=== PATIENT | male | born 1960 | race Caucasian/White ===

== ENCOUNTER 2016-02-29 18:41 | Emergency (ER) | payer OTHER ==
[2016-02-29 19:15] VITALS: PULSE 85; RESP 16; TEMP 98.6; O2SAT 95
[2016-02-29 19:20] LABS: COLOR YELLOW; LEUKOCYTE ESTERASE,URINE NEGATIVE (NEGATIVE); NITRITE,URINE NEGATIVE (NEGATIVE)
--- NOTE | 2016-02-29 19:20 | UCPHY ---
H & P Time Seen by Provider: 02/29/16 18:47 Patient Type: New HPI/ROS: This patient reports hypertension. He has no somatic symptoms but he checked his blood pressure at home today and noticed that he had a diastolic pressure of 112 and systolic in the 180s. He then went to grocery store and checked it there again with a diastolic of I 12 and a higher systolic pressure. He came in for evaluation due to the ongoing hypertension despite his compliance with lisinopril 20 mg daily in the morning. He has been on the same dose for years now. He does report increase social stressors at work but no other lifestyle changes that might contribute to hypertension. ROS: Constitutional: No fatigue or fevers. HEENT: No headache or confusion, neuro: No focal numbness tingling weakness. No bowel or bladder incontinence Musculoskeletal he complains of intermittent right lumbar discomfort and sciatica. He currently has 5/10 right low back pain. Pulmonary: No shortness of breath cardiovascular: No chest pain heart palpitations dyspnea. GI: No nausea vomiting : No flank pain or hematuria. Complete ROS is otherwise negative Past Medical/Surgical History: Hypertension He once had proteinuria but that resolved after he started using his breather mask for sleep apnea at night. Sleep apnea Hypothyroid Family history: Negative for premature coronary artery disease Social History: Rare alcohol No drug use No coffee use Physical Exam: General Appearance: Alert, no distress. Eyes: Pupils equal and round no pallor or injection. ENT, Mouth: Mucous membranes moist. Respiratory: There are no retractions, lungs are clear to auscultation. Cardiovascular: Regular rate and rhythm. No murmur gallop or rub. No JVD. No peripheral edema Gastrointestinal: Soft, nontender Back: Mild right lumbar tenderness Neurological: Alert with no focal deficits. He maintains 5/5 strength in great toe dorsiflexion and plantar flexion bilaterally. No light touch sensory deficits. 2+ symmetric patellar DTRs bilaterally Skin: Warm and dry, no rashes. Extremities are symmetrical, full range of motion. Psychiatric: Mood and affect are normal DIFFERENTIAL DIAGNOSIS: After history and physical exam differential diagnosis was considered for hypertensive urgency with no overt evidence of end-organ injury. Nephritis functional hyper thyroidism Constitutional: Initial Vital Signs Temperature (C) 37.0 C 02/29/16 18:55 Heart Rate 85 02/29/16 18:55 Respiratory Rate 16 02/29/16 18:55 Blood Pressure 170/108 H 02/29/16 18:55 O2 Sat (%) 95 02/29/16 18:55 O2 Delivery Mode Room Air Allergies/Adverse Reactions: No Known Allergies Allergy (Verified 02/29/16 19:04) Home Medications: Medication Instructions Recorded LISINOPRIL 08/05/09 SYNTHROID 08/05/09 Axirone 02/29/16 Lisinopril 40 mg PO DAILY #30 tablet 02/29/16 Simvastatin 02/29/16 MDM/Departure - MDM Medications Given: Discontinued Medications Clonidine (Catapres) 0.2 mg PO EDNOW ONE Stop: 02/29/16 19:12 Last Admin: 02/29/16 19:21 Dose: 0.2 mg ED Course/Re-evaluation: Clonidine 0.2 p.o. - Depart Disposition: Home, Routine, Self-Care Clinical Impression: Hypertensive urgency, Sciatica of right side Condition: Good Instructions: Hypertension (ED), Sciatica (ED) Additional Instructions: Diagnosis: Hypertensive Urgency 2. Sciatica Plan: increase your Lisinopril dose to 40 mg per day & call your primary doctor to arrange a f/u appt. for a re-check in 3-7 days Return here or to the Emergency Department for any significant worsening despite the treatment plan. With the back pain, treat out Tylenol instead of ibuprofen on some days. Starts daily stretches 3-5 minutes each of: "Butterfly stretch," "Sphinx stretch", "pigeon stretch", and hamstring stretch. Avoid lifting more than 5-10 pounds until symptoms improve. Call your primary care physician for a followup appointment in 3-7 days. Go to the emergency department for worsening of your symptoms despite the treatment plan. Prescriptions: Lisinopril 40 mg PO DAILY #30 tablet Referrals: Jose Black DO [Primary Care Provider] - As per Instructions - PQRS PQRS Measurement: NA
[2016-02-29 19:27] LABS: RBC,URINE OCCASIONAL /hpf (0-3); WBC,URINE NONE SEEN /hpf (0-3)
[2016-02-29 20:21] VITALS: BP 158/100
== END 2016-02-29 20:22 | disposition home or self-care (01) ==
LOC: CED 18:41
DX: I10 Essential (primary) hypertension (principal); M54.31 Sciatica, right side
CPT/HCPCS: 81003-PO; 81015-PO; G0463-PO

== ENCOUNTER 2017-06-14 09:15 | Inpatient (IN) | payer OTHER ==
--- NOTE | 2017-05-25 17:54 | GHP ---
[f rep st] PREOP HISTORY AND PHYSICAL DATE OF ADMISSION: 06/21/2017 He will be an a.m. admission for surgery on June 21, 2017. PROBLEM: Right hip arthritis. HISTORY OF PRESENT ILLNESS: The patient is a 56-year-old man admitted for a right hip [place] hip resurfacing arthroplasty. He has had progressive pain in his right hip for the past 18 months. He is having daily pain and night pain. The hip is painful with walking and standing. His activities a re very limited. He is using ibuprofen as needed, but it does not help much. He normally likes to r aleena a bike, play basketball and football with his children, and do some hiking. He has trouble putti ng on his shoes and socks on the right side. No hip surgery. No prior physical therapy. He has had 3 cortisone injections. He has gained 20 pounds recently because he has been unable to exercise. Anabel rosen has failed nonsurgical treatment and is admitted for a right hip [place] hip resurfacing arthrop lasty. PAST MEDICAL HISTORY: He is treated for hypothyroidism, hypertension, and elevated cholesterol. He also receives testosterone shots. No history of heart disease, stents, DVT, hepatitis. He has sleep apnea and uses a CPAP machine. CURRENT MEDICATIONS: Levothyroxine 50 mcg per day, lisinopril 20 mg per day, simvastatin 40 mg per d ay. DRUG ALLERGIES: None. Metal allergy: None. Latex allergy: None. SOCIAL HISTORY: The patient does not smoke cigarettes and occasionally drinks alcohol. He has a gen e-in female partner at home. FAMILY HISTORY: Positive for hypertension, arthritis, and cancer. PHYSICAL EXAMINATION: VITAL SIGNS: Height 5 feet 10 inches. Weight 260 pounds. BMI 37.3. EYES: Conjunctivae and sclerae are clear. Pupils are round and reactive. MOUTH: Good oral hygiene. CHES T: Clear. HEART: Regular rhythm. No murmurs. EXTREMITIES: Pertinent findings limited to his rig ht hip. He has full hip extension and 100 degrees of flexion. External rotation 20 degrees. Manufacturer al rotation 0 degrees. Abduction 30 degrees. Well-developed thigh musculature. ABDOMEN: He has qu ite a bit of abdominal and truncal obesity. IMAGING PROCEDURES: His films show advanced degenerative arthritis of the right hip. He is bone on bone. IMPRESSION: On admission, right hip advanced degenerative arthritis. He is prepared for a right hip [place] hip resurfacing arthroplasty. 1. Treatment for hypertension. 2. Treatment for elevated cholesterol. 3. Treatment for hypothyroidism. PLAN: He will undergo a right hip [place]elda hip resurfacing arthroplasty. The surgery has been ignacio cribed to him, including the risks, complications, expectations, and recovery time. I have discussed with him the risk of dislocation, femoral neck fracture, infection, and sciatic nerve injury. Alvaro rosen also discussed with him extensively the issue of elevated metal ions in the blood and in the soft t issues around the hip joint. He understands that he is quite young for any type of hip arthroplasty and will probably require revision surgery in the future. I have explained to him the options betjime n a conventional total hip replacement and hip resurfacing. All his questions have been answered. Anabel rosen has elected to proceed with a [place] hip resurfacing on the right hip. /[id number]/MODL
[2017-06-21] MEDS ORDERED: ONDANSETRON 4 MG/2 ML VIAL IVP ONE (05:53)
[2017-06-21] MEDS ORDERED: FAMOTIDINE 20 MG TAB PO ONE (05:53)
[2017-06-21] MEDS ORDERED: ceFAZolin 2 GM/SWFI 2 GM/20 ML SYR IVP ONE (05:53)
[2017-06-21] MEDS ORDERED: ACETAMINOPHEN 325 MG TAB PO ONE (05:53)
[2017-06-21] MEDS ORDERED: GABAPENTIN 300 MG CAP PO ONE (05:53)
[2017-06-21] MEDS ORDERED: DEXAMETHASONE 4 MG/ML VIAL IVP ONE (05:53)
[2017-06-21] MEDS ORDERED: LIDOCAINE 1% 2 ML INJ ID PRN (05:54)
[2017-06-21] MEDS ORDERED: LR 1,000 ML IV ONE (05:54)
[2017-06-21] MEDS ORDERED: NS IV ONE (06:00)
[2017-06-21] MEDS ORDERED: TRANEXAMIC ACID IV ONE (06:00)
[2017-06-21] MEDS ORDERED: POVIDONE-IODINE 20 ML in SODIUM CL IRRIG SOLUTION 500 ML IRR ONE (06:00)
[2017-06-21] MEDS ORDERED: ROPIVACAINE 0.2% 80 MG, EPINEPHrine 0.2 MG, KETOROLAC TROMETHAMINE 30 MG in SYRINGE 0 ML IU ONE (06:00)
[2017-06-21] MEDS ORDERED: ceFAZolin 1 GM/5 ML SYR ONE (06:44)
[2017-06-21] MEDS ORDERED: MIDAZOLAM 2 MG/2 ML VIAL IVP ONE (06:50)
--- NOTE | 2017-06-21 06:50 | PDANEPAE ---
ANE History of Present Illness osteoarthritis ANE Past Medical History - Cardiovascular History Hx Hypertension: Yes Hx Arrhythmias: No Hx Chest Pain: No Hx Coronary Artery / Peripheral Vascular Disease: No Hx CHF / Valvular Disease: No Hx Palpitations: No - Pulmonary History Hx COPD: No Hx Asthma/Reactive Airway Disease: No Hx Recent Upper Respiratory Infection: No Hx Oxygen in Use at Home: No Hx Sleep Apnea: Yes Sleep Apnea Screening Result - Last Documented: Positive Pulmonary History Comment: TIFFANY uses C-PAP - Neurologic History Hx Cerebrovascular Accident: No Hx Seizures: No Hx Dementia: No - Endocrine History Hx Diabetes: No Hypothyroid: Yes Hyperthyroid: No Obesity: yes, moderate - Renal History Hx Renal Disorders: No - Liver History Hx Hepatic Disorders: No - Neurological & Psychiatric Hx Hx Neurological and Psychiatric Disorders: Yes Neurological / Psychiatric History Comment: mild carpal tunnel to hands - Cancer History Hx Cancer: No - Congenital Disorder History Hx Congenital Disorders: Yes Congenital History Comment: DJD, HTN,Hyperlipidemia - GI History GERD: no Hx Gastrointestinal Disorders: No - Other Health History Other Health History: mouth breather when on back - Chronic Pain History Chronic Pain: No - Surgical History Prior Surgeries: meniscus repair,. hand sx ANE Review of Systems Review of Systems: - Exercise capacity METS (RN): 4 METS ANE Patient History - Allergies Allergies/Adverse Reactions: No Known Allergies Allergy (Verified 06/01/17 12:44) - Home Medications Home Medications: SYNTHROID 0.05 mg PO DAILY MDD One q day and 2 on Sundays08/05/09 [Last Taken 06/20/17 07:00] Simvastatin 40 mg PO DAILY AT 8PM 02/29/16 [Last Taken 06/20/17 19:00] Lisinopril/Hydrochlorothiazide 20 mg PO BID MDD Dose is 20/12.5 06/01/17 [Last Taken 06/20/17 19:00] - NPO status NPO Since - Liquids (Date): 06/20/17 NPO Since - Liquids (Time): 22:30 NPO Since - Solids (Date): 06/20/17 NPO Since - Solids (Time): 21:30 - Anes Hx Anes Hx: no prior problems - Smoking Hx Smoking Status: Never smoked Marijuana use: No - Alcohol Use Alcohol Use: Occasionally - Family Anes Hx Family Anes Hx: neg - N/A Family Hx Anesthesia Complications: none ANE Labs/Vital Signs - Vital Signs Blood Pressure: 119/85 Heart Rate: 79 Respiratory Rate: 16 O2 Sat (%): 95 Height: 177.8 cm Weight: 117.934 kg ANE Physical Exam - Airway Neck exam: FROM, increased neck circumference, short neck Mallampati Score: Class 3 Mouth exam: normal dental/mouth exam - Pulmonary Pulmonary: no respiratory distress, no rales or rhonchi, clear to auscultation - Cardiovascular Cardiovascular: regular rate and rhythym, no murmur, rub, or gallop - ASA Status ASA Status: III ANE Anesthesia Plan Anesthesia Plan: MAC, spinal Total IV Anesthesia: No
[2017-06-21] MEDS ORDERED: PROPOFOL/EMULSION 500 MG/50 ML BOTTLE IV ONE ×2 (07:06→08:25)
[2017-06-21] MEDS ORDERED: fentaNYL 100 MCG/2 ML INJ ONE (07:06)
[2017-06-21] MEDS ORDERED: LIDOCAINE 2% 5 ML SDV ONE ×2 (07:12)
--- NOTE | 2017-06-21 07:12 | PDHPUP ---
History & Physical Update H&P update statement: This history and physical update is based on an assessment of the patient which was completed after admission or registration (within 24 hours), but prior to the surgery/procedure. H&P update: H&P reviewed & patient examined
[2017-06-21] MEDS ORDERED: PHENYLEPHRINE HCL 100 MCG/ML SYR ONE ×2 (07:39→08:41)
[2017-06-21] MEDS ORDERED: PHENYLEPHRINE HCL 100 MCG/ML SYR IVP PRN (08:09)
[2017-06-21] MEDS ORDERED: epHEDrine SULFATE 10 MG/ML SYR IVP PRN (08:09)
[2017-06-21] MEDS ORDERED: NALOXONE HCL 0.4 MG/ML INJ IVP PRN (08:09)
[2017-06-21] MEDS ORDERED: ACETAMINOPHEN 500 MG TAB PO PRN (08:09)
[2017-06-21] MEDS ORDERED: HYDROCODONE/APAP 5/325 TAB PO PRN (08:09)
[2017-06-21] MEDS ORDERED: LR 500 ML IV PRN (08:09)
[2017-06-21] MEDS ORDERED: ONDANSETRON 4 MG/2 ML VIAL IVP PRN ×2 (08:09→09:30)
[2017-06-21] MEDS ORDERED: oxyCODONE IR 5 MG TAB PO PRN (08:09)
[2017-06-21] MEDS ORDERED: ESMOLOL HCL 100 MG/10 ML VIAL IV ONE (09:15)
--- NOTE | 2017-06-21 09:23 | POSTOPPROG ---
Post Op Note Date of Operation: 06/21/17 Surgeon: Austyn Romero Math Interventionist: Stephenie Anesthesiologist: Dr. Trey Layne Anesthesia: IV Sedation, Spinal Post-op Diagnosis: Right hip severe degenerative arthritis. Procedure: Right hip [place] hip resurfacing arthroplasty. Inf/Abcess present in the surg proc area at time of surgery?: No EBL: 100-500
[2017-06-21] MEDS ORDERED: DIPHENOXYLATE/ATROPINE LOMOTIL 1 TAB PO PRN (09:30)
[2017-06-21] MEDS ORDERED: ONDANSETRON DISINTEGRATING 4 MG TAB PO PRN (09:30)
[2017-06-21] MEDS ORDERED: TEMAZEPAM 15 MG CAP PO PRN (09:30)
[2017-06-21] MEDS ORDERED: BISACODYL 10 MG SUPP PR PRN (09:30)
[2017-06-21] MEDS ORDERED: traMADol 50 MG TAB PO PRN (09:30)
[2017-06-21] MEDS ORDERED: diphenhydrAMINE 25 MG CAP PO PRN (09:30)
[2017-06-21] MEDS ORDERED: METOCLOPRAMIDE 10 MG/2 ML VIAL IVP PRN (09:30)
[2017-06-21] MEDS ORDERED: CYCLOBENZAPRINE 10 MG TAB PO PRN (09:30)
[2017-06-21] MEDS ORDERED: PROMETHAZINE HCL 25 MG/ML INJ IVP PRN (09:30)
[2017-06-21] MEDS ORDERED: POLYETHYLENE GLYCOL 3350 17 GM PKT PO PRN (09:30)
[2017-06-21] MEDS ORDERED: NS 500 ML IV PRN (09:30)
[2017-06-21] MEDS ORDERED: MAGNESIUM HYDROXIDE 30 ML UDCUP PO PRN (09:30)
[2017-06-21] MEDS ORDERED: LR 1,000 ML IV SCH (09:30)
[2017-06-21] MEDS ORDERED: PROMETHAZINE HCL 25 MG SUPPR PR PRN (09:30)
[2017-06-21] MEDS ORDERED: LACTULOSE 20 GM/30 ML UDCUP PO PRN (09:30)
--- NOTE | 2017-06-21 10:11 | GOP ---
[f rep st] OPERATIVE REPORT DATE OF OPERATION: 06/21/2017 SURGEON: Austyn Romero MD SEISMIC PROSPECTING OBSERVER: Juan Jimenez, BUYER AGENT and Andrez Saenz, PAC. ANESTHESIA: A combination of Marcaine, spinal, and IV sedation. ANESTHESIOLOGIST: Anastasiya Layne DO. PREOPERATIVE DIAGNOSIS: Right hip severe degenerative arthritis. POSTOPERATIVE DIAGNOSIS: Right hip severe degenerative arthritis. PROCEDURE PERFORMED: Right hip [place] hip resurfacing arthroplasty. FINDINGS: ESTIMATED BLOOD LOSS: About 400 mL. DESCRIPTION OF PROCEDURE: The patient was given 2 g of IV Ancef within 60 minutes of surgery. He al so received IV tranexamic acid at a dose of 20 mg/kg. He was placed on the operating room table and given spinal anesthesia with Marcaine by Dr. Layne. He was then placed supine and given IV sed ation. A Bassett catheter was not used. He wore a compressive stocking and SCD on the nonoperative le g. He was rolled to the left lateral decubitus position. An axillary roll was used, and all pressur e points were carefully padded. He was a large muscular man which made positioning somewhat difficul t. His BMI is 37.3. The position was secured with the pegboard table attachment. I was careful to lock his pelvis in a vertical position. His perineum was isolated with plastic adhesive drapes. His right hip and right lower extremity were prepped with ChloraPrep. They were draped free using steri le sheets, stockinette, and Ioban plastic drape. The World [employer] Organization time-out was performed to verify the correct patient identity and the c orrect surgical side and site. The [place] time-out was also performed. I made a 7 inch straight oblique posterolateral hip skin incision. Subcutaneous tissues were sharply divided, and hemostasis was obtained using electrocautery. The fascia yash was identified and split along the axis of its fibers. I curved posteriorly and proximally, and split the fascia of gluteus barry and bluntly split the muscle fibers in line with their orientation. His sciatic nerve was id entified and protected throughout the procedure. The Charnley self-retaining retractor was inserted. His external rotators and posterior hip capsule were divided as separate layers at the base of the femoral neck, tagged, and reflected posteriorly. The gluteus barry tendon was divided and tagged i n order to improve exposure and release tension on the sciatic nerve. His hip was dislocated posteri ayad. I used a sizing gauge to check the diameter of the neck and concluded that 52 mm was the prope r head size. I performed a complete circumferential capsulotomy. I was able to retract the femoral head anteriorly and superiorly, and hold it out of place with appropriate retractors. The remnant of his damaged labrum was completely excised. His acetabulum was reamed sequentially up to 57 mm. I s elected the Imelda monoblock porous-coated acetabular component with an outside diameter of 58 mm . This was firmly impacted and was a tight fit. I was careful to determine proper inclination and a nteversion. I used the transverse acetabular ligament and other acetabular bony landmarks to help me determine proper cup orientation. I was careful to leave a good lip of bone and capsule extending b eyond the anterior-inferior lip of the metal cup. I then returned to preparation of the femoral head. Using appropriate jigs and guides, I inserted a guide pin into the femoral head and neck. I was careful to position in such a way that there would b e no notching of the neck. The large sterile metal goniometer was used to check the neck shaft angle . I reamed over the guide pin and inserted the reaming guide. I then used the cylindrical reamer do wn to the head and neck junction. This was followed by the flat reamer and the chamfer reamer. The head was sized for 52 mm. There was no impingement or damage to the neck. He had excellent quality bone in his femoral head. I drilled a small hole in the lesser trochanter and inserted a suction can nula to create negative pressure in the medullary canal. Small holes were drilled on the flattened c hamfer surfaces of the head for cement anchors. The head was thoroughly cleaned with the pulsating l avage and carefully dried. I used a CarboJet device to blow dry the cancellous surfaces. A single b atch of Simplex cement with tobramycin was mixed. At about 50 seconds, I poured the liquid cement in to the head component, inserted it on the femoral head and impacted it into place. Excess cement was removed before it hardened. The acetabulum was irrigated, cleaned and inspected, and the hip was reduced. Stability and range of motion were checked. I placed my finger along the anterior aspect of the acetabular component and f lexed the hip to 110 degrees. There was no anterior impingement. The suction cannula on the lesser trochanter was removed. The wound was thoroughly irrigated with a dilute Betadine solution. 40 mL o f the joint anesthetic cocktail were injected into the capsule, the deep musculature, and the subcuta neous tissues along the skin edges. The sciatic nerve was reinspected and looked unharmed. His external rotators and posterior capsule w ere repaired in separate layers with #2 FiberWire sutures through drill holes in the greater trochant er. The gluteus barry tendon was repaired with 2 [id number] #2 FiberWire sutures. The fascia yash was closed first with a couple of interrupted [id number]-axcap #2 FiberWire sutures followed by a running #2 barbed Ethicon StrataFix PDO suture. The subcutaneous tissues were closed with a runnin g 0 barbed Ethicon Stratafix Monoderm suture. The skin was closed with a running 3-0 barbed Ethicon Stratafix Monoderm subcuticular suture. The skin edges were reapproximated and sealed with Dermabond glue. The wound was covered with a large sterile Mepilex waterproof dressing. The Mepilex sacral dressing was also applied. IMPLANTS: I used the [place] hip resurfacing system. The acetabular component was [address] and press-fit. The femoral head was 52 mm and cemented. He was awakened from anesthesia and rolled to the supine position on his [facility]. A long-leg compressive stocking and SCD were applied to the operative leg. He was awakened from anesthesia, tr ansferred to his [facility] and taken to PACU in satisfactory condition. There were no recogniz ed intraoperative complications. The sponge and needle count were correct on 2 occasions. Juan Jimenez and Hao Saenz acted as surgical assistants. Their assistance was a medical necess ity for safe completion of the procedure. /[id number]/MODL
--- NOTE | 2017-06-21 11:00 | POSTANESTH ---
Post Anesthetic Evaluation Cardiovascular Status: Normal, Stable Respiratory Status: Normal, Stable Level of Consciousness/Mental Status: Can Participate in Eval Pain Control: Adequate, Prn Tx Ordered Nausea/Vomiting Control: Adequate, Prn Tx Ordered Complications Possibly Related to Anesthesia: None Noted
--- NOTE | 2017-06-21 11:41 | PDMN ---
Medical Necessity Medical necessity: [facility]: M560 hip arthroplasty A-2 MC INPT only R FARA
[2017-06-21] MEDS: ACETAMINOPHEN 325 MG TAB PO SCH ×2 (12:46→18:01)
[2017-06-21] MEDS: KETOROLAC 15 MG/1 ML SDV IVP SCH ×2 (12:47→17:58)
[2017-06-21] MEDS ORDERED: ceFAZolin 2 GM/DEXTROSE 100 ML IV SCH (14:00)
[2017-06-21] MEDS: ceFAZolin 2 GM/SWFI 2 GM/20 ML SYR IVP SCH ×2 (14:51→21:43)
[2017-06-21] MEDS: TRANEXAMIC ACID 650 MG TAB PO SCH (16:33)
[2017-06-21] MEDS: LISINOPRIL/HCTZ 20/12.5MG 1 EA TAB PO SCH (18:00)
[2017-06-21] MEDS ORDERED: ATORVASTATIN CALCIUM 20 MG TAB PO SCH (20:00)
[2017-06-21] MEDS ORDERED: SIMVASTATIN 40 MG PO SCH (20:00)
[2017-06-21] MEDS ORDERED: HYDROCHLOROTHIAZIDE PO SCH (21:00)
[2017-06-21] MEDS ORDERED: LISINOPRIL PO SCH (21:00)
[2017-06-21] MEDS: SENNOSIDES/DOCUSATE SODIUM TAB PO SCH (21:42)
[2017-06-21] MEDS: FAMOTIDINE 20 MG TAB PO SCH (21:42)
[2017-06-21] MEDS: ASPIRIN 325 MG TAB PO SCH (21:42)
[2017-06-21] MEDS: oxyCODONE IR 5 MG TAB PO PRN (21:43)
[2017-06-22] MEDS: ACETAMINOPHEN 325 MG TAB PO SCH ×2 (00:10→06:21)
[2017-06-22] MEDS: KETOROLAC 15 MG/1 ML SDV IVP SCH ×2 (00:11→06:20)
[2017-06-22] MEDS: TRANEXAMIC ACID 650 MG TAB PO SCH ×2 (00:11→08:27)
[2017-06-22] MEDS ORDERED: LEVOTHYROXINE 50 MCG TAB PO SCH (06:00)
--- NOTE | 2017-06-22 07:11 | SOAPPROG ---
SOAP Progress Note Assessment/Plan: Assessment: Afebrile. Mild pain. He has been walking in the rush. His dressing is dry. Sciatic nerve intact. Postop films look excellent. Postop H&H is good. Plan: Continue physical therapy today. Discharged later today. 06/22/17 07:10 Objective: Vital Signs Temp Pulse Resp BP Pulse Ox 36.6 C 64 16 101/63 97 06/22/17 04:00 06/22/17 04:00 06/22/17 04:00 06/22/17 04:00 06/22/17 04:00 Laboratory Results 06/22/17 05:04 06/21/17 06/22/17 06/23/17 05:59 05:59 05:59 Intake Total 3350 Output Total 1550 Balance 1800 ICD10 Worksheet Patient Problems: Problems Problem Status Onset Osteoarthritis of right hip Acute
--- NOTE | 2017-06-22 07:31 | GDS ---
[f rep st] DISCHARGE SUMMARY ADMISSION DIAGNOSIS: Right hip severe degenerative arthritis. DISCHARGE DIAGNOSIS: Right hip severe degenerative arthritis. OPERATION PERFORMED: 07/10/2017, right hip [place] hip resurfacing arthroplasty. POSTOPERATIVE COMPLICATIONS: None. CONDITION ON DISCHARGE: Improved. DESCRIPTION OF HOSPITAL COURSE: The patient was admitted to the hospital on the morning of surgery. His preoperative hemoglobin and hematocrit were 17.2 and 49.3. White blood cell count was 10,120. The same day, under a combination of Marcaine, spinal, and IV sedation, he underwent a right hip [place] hip resurfacing arthroplasty. Postoperatively, he was treated with multimodal DVT prophylaxis , including aspirin. On the first postoperative day his hemoglobin and hematocrit were 13.3 and 37.2 . He was seen by Physical Therapy and made rapid progress with ambulation and stairs. By the time o f discharge, he was afebrile, his wound was dry, and he was independent walking. DISPOSITION: Patient discharged to his home. He will go to outpatient physical therapy starting nex t week. He may progress to full weightbearing on the right as tolerated. Use an abduction pillow in bed for 3 weeks. Use MAYKEL stockings for 1 week. Continue aspirin 325 mg p.o. daily for 21 days. He has prescriptions for Celebrex, tramadol and oxycodone for pain. I will see him back in the office on July 10, 2017. If there are any problems, he is to call me at the office. /[id number]/MODL
[2017-06-22 07:59] VITALS: BP 118/76
[2017-06-22] MEDS: LISINOPRIL/HCTZ 20/12.5MG 1 EA TAB PO SCH (08:12)
[2017-06-22] MEDS: ASPIRIN 325 MG TAB PO SCH (08:27)
[2017-06-22] MEDS: SENNOSIDES/DOCUSATE SODIUM TAB PO SCH (08:28)
[2017-06-22] MEDS: FAMOTIDINE 20 MG TAB PO SCH (08:28)
[2017-06-22] MEDS: oxyCODONE IR 5 MG TAB PO PRN (08:32)
[2017-06-22] MEDS ORDERED: SYNTHROID 0.05 MG PO SCH (09:00)
--- NOTE | 2017-06-22 09:27 | ASMTCMCOM ---
CM Note CM Note Notes: OT rec home, PT rec outpatient. Pt medically stable for d/c, no CM d/c needs identified. Date Signed: 06/22/2017 09:26 AM Electronically Signed By:ZENAIDA Knox
[2017-06-25] MEDS ORDERED: LEVOTHYROXINE 100 MCG TAB PO SCH (06:00)
[2017-06-25] MEDS ORDERED: LEVOTHYROXINE 50 MCG TAB PO SCH (06:00)
== END 2017-06-22 11:14 | disposition home or self-care (01) | DRG 470 ==
LOC: F3N 06-21 05:48
PROVIDERS: ADMIT Orthopaedic Surgery; ATTEND Orthopaedic Surgery
PROC: 0SUB0BZ Supplement Left Hip Joint with Resurfacing Device, Open Approach (ICD-10-PCS; principal; 2017-06-21 07:15)
DX: M16.11 Unilateral primary osteoarthritis, right hip (principal); E03.9 Hypothyroidism, unspecified; I10 Essential (primary) hypertension; E78.00 Pure hypercholesterolemia, unspecified; G47.30 Sleep apnea, unspecified
CPT/HCPCS: 97110-GP; 97116-GP; 97161-GP; 97165-GO; C1713; J0171; J0690; J1100; J1200; J1885; J2250; J2370; J2704; J2795; J3010

== ENCOUNTER 2018-01-03 05:53 | Inpatient (IN) | payer OTHER ==
--- NOTE | 2017-12-25 08:31 | GHP ---
DATE OF ADMISSION: 01/03/2018 He will be an a.m. admission for surgery on 01/03/2018. PROBLEM: Left hip advanced degenerative arthritis. HISTORY OF PRESENT ILLNESS: The patient is a 57-year-old man admitted for a left hip [place] hip resurfacing arthroplasty. I did his right BHR in May of 2017. He has had a very good result. For the past 4 or 5 months, he has had increasing pain in his left hip. He received a cortisone injecti on in August which was temporarily helpful. He has trouble putting on his shoes and socks on the left foot. He is very satisfied with his right BHR. He will undergo the same procedure on his left hip. PAST MEDICAL HISTORY: He is treated for hypothyroidism, hypertension, and elevated cholesterol. He also receives testosterone shots. No history of heart disease, stents, DVT, or hepatitis. He has sl eep apnea and uses a CPAP machine. CURRENT MEDICATIONS: Levothyroxine 50 mcg per day, lisinopril 20 mg per day, simvastatin 40 mg per d ay. DRUG ALLERGIES: None. METAL ALLERGY: None. LATEX ALLERGY: None. SOCIAL HISTORY: The patient does not smoke cigarettes and occasionally drinks alcohol. He has a gen e-in female partner at home. FAMILY HISTORY: Positive for hypertension, arthritis, and cancer. PHYSICAL EXAMINATION: VITAL SIGNS: Height 5 feet 10 inches. Weight 260 pounds. BMI 37.3. EYES: The conjunctivae and sclerae are clear. Pupils are round and reactive. MOUTH: Good oral hygiene. No loose teeth. CHEST: Clear. HEART: Regular rhythm. No murmurs. EXTREMITIES: Pertinent findin gs limited to his left hip. He has full hip extension and 100 degrees of flexion. External rotation 20 degrees. Internal rotation 0 degrees. Abduction 30 degrees. He has well-developed thigh muscul ature. RADIOGRAPHS: Films show degenerative arthritis of his left hip. He has a properly positioned right BHR. IMPRESSION ON ADMISSION: 1. Left hip advanced degenerative arthritis. He is prepared for a left hip [place]el[place] hip resurfaci ng arthroplasty. 2. Status post right hip [place] hip resurfacing arthroplasty with a good result. 3. Treatment for hypertension. 4. Treatment for elevated cholesterol. 5. Treatment for hypothyroidism. PLAN: He will undergo a left hip [place] hip resurfacing arthroplasty. The surgery has been desc ribed to him including the risks, complications, expectations, and recovery time. We have specifical ly discussed the risk of dislocation, femoral neck fracture, infection, and sciatic nerve injury. He also fully understands the issue of elevated metal ions in the blood and the soft tissues around the hip joint. He is quite young for any type of total hip arthroplasty and may require revision surger y in the future. We have discussed the options of a conventional total hip replacement, including th e pros and cons of each procedure. All his questions have been answered, and he consents to surgery. /[id number]/MODL
[2018-01-03] MEDS ORDERED: TRANEXAMIC ACID 2,000 MG in NS 100 ML IV ONE (06:00)
[2018-01-03] MEDS ORDERED: POVIDONE-IODINE 20 ML in SODIUM CL IRRIG SOLUTION 500 ML IRR ONE (06:00)
[2018-01-03] MEDS ORDERED: ROPIVACAINE 0.2% 80 MG, EPINEPHrine 0.2 MG, KETOROLAC TROMETHAMINE 30 MG in SYRINGE 0 ML IU ONE (06:00)
[2018-01-03] MEDS ORDERED: TRANEXAMIC ACID 3,000 MG in NS (SYRINGE) 50 ML IRR ONE (06:00)
[2018-01-03] MEDS ORDERED: ONDANSETRON 4 MG/2 ML VIAL IVP ONE (06:05)
[2018-01-03] MEDS ORDERED: DEXAMETHASONE 4 MG/ML VIAL IVP ONE (06:05)
[2018-01-03] MEDS ORDERED: GABAPENTIN 300 MG CAP PO ONE (06:05)
[2018-01-03] MEDS ORDERED: ceFAZolin 2 GM/DEXTROSE 100 ML IV ONE (06:05)
[2018-01-03] MEDS ORDERED: ACETAMINOPHEN 325 MG TAB PO ONE (06:05)
[2018-01-03] MEDS ORDERED: FAMOTIDINE 20 MG TAB PO ONE (06:05)
[2018-01-03] MEDS ORDERED: BUPIVACAINE 0.5% 10 ML SDV ONE (06:06)
[2018-01-03] MEDS ORDERED: LIDOCAINE 1% 2 ML INJ ID PRN (06:07)
[2018-01-03] MEDS ORDERED: LR 1,000 ML IV ONE (06:07)
[2018-01-03] MEDS ORDERED: ONDANSETRON 4 MG/2 ML VIAL ONE (06:29)
[2018-01-03] MEDS ORDERED: LIDOCAINE 2% 5 ML SDV ONE (06:29)
[2018-01-03] MEDS ORDERED: MIDAZOLAM 2 MG/2 ML VIAL ONE (06:29)
[2018-01-03] MEDS ORDERED: PROPOFOL 200 MG/20 ML VIAL ONE (06:30)
[2018-01-03] MEDS ORDERED: PROPOFOL/EMULSION 500 MG/50 ML BOTTLE IV ONE ×3 (06:30→07:49)
[2018-01-03] MEDS ORDERED: fentaNYL 100 MCG/2 ML INJ ONE (06:30)
[2018-01-03] MEDS ORDERED: TRANEXAMIC ACID 3,000 MG/50 ML BAG IRR ONE (06:38)
[2018-01-03] MEDS ORDERED: ceFAZolin 1 GM/5 ML SYR ONE (06:39)
--- NOTE | 2018-01-03 06:49 | PDANEPAE ---
ANE Past Medical History - Cardiovascular History Hx Hypertension: Yes Hx Arrhythmias: No Hx Chest Pain: No Hx Coronary Artery / Peripheral Vascular Disease: No Hx CHF / Valvular Disease: No Hx Palpitations: No - Pulmonary History Hx COPD: No Hx Asthma/Reactive Airway Disease: No Hx Recent Upper Respiratory Infection: No Hx Oxygen in Use at Home: No Hx Sleep Apnea: Yes Sleep Apnea Screening Result - Last Documented: Positive Pulmonary History Comment: TIFFANY uses C-PAP - Neurologic History Hx Cerebrovascular Accident: No Hx Seizures: No Hx Dementia: No - Endocrine History Hx Diabetes: No Hypothyroid: Yes Endocrine History Comment: HYPOTHYROID - Renal History Hx Renal Disorders: No - Liver History Hx Hepatic Disorders: No - Neurological & Psychiatric Hx Hx Neurological and Psychiatric Disorders: Yes Neurological / Psychiatric History Comment: mild carpal tunnel to hands - Cancer History Hx Cancer: No - Congenital Disorder History Hx Congenital Disorders: Yes Congenital History Comment: DJD - GI History Hx Gastrointestinal Disorders: No - Other Health History Other Health History: mouth breather when on back - Chronic Pain History Chronic Pain: No - Surgical History Prior Surgeries: R HIP RESURFACING. meniscus repair,. hand sx. APPENDECTOMY ANE Review of Systems Review of Systems: - Exercise capacity METS (RN): 4 METS ANE Patient History - Allergies Allergies/Adverse Reactions: No Known Allergies Allergy (Verified 01/03/18 07:02) - Home Medications Home Medications: RX: Simvastatin [Zocor] 40 mg PO DAILY18 02/29/16 [Last Taken 06/20/17] RX: Lisinopril/Hctz 20/12.5MG [Zestoretic/Prinzide 20/12.5MG (*)] 1 ea PO BIDMEAL 06/01/17 [Last Taken 06/20/17 18:00] Levothyroxine [Synthroid 50 mcg (*)] 50 mcg PO DAILY06 12/26/17 [Last Taken Unknown] - Smoking Hx Smoking Status: Never smoked - Family Anes Hx Family Hx Anesthesia Complications: none ANE Labs/Vital Signs - Vital Signs Height: 177.8 cm Weight: 117.934 kg ANE Physical Exam - Airway Neck exam: FROM, spinal fusion, increased neck circumference, short neck Mallampati Score: Class 2 Mouth exam: normal dental/mouth exam - Pulmonary Pulmonary: no respiratory distress, no rales or rhonchi - Cardiovascular Cardiovascular: regular rate and rhythym, no murmur, rub, or gallop, systolic murmur - ASA Status ASA Status: II ANE Anesthesia Plan Anesthesia Plan: spinal
[2018-01-03] MEDS ORDERED: PROMETHAZINE HCL 25 MG/ML INJ IVP PRN ×2 (07:28→09:06)
[2018-01-03] MEDS ORDERED: PHENYLEPHRINE HCL 100 MCG/ML SYR IVP PRN (07:28)
[2018-01-03] MEDS ORDERED: NALOXONE HCL 0.4 MG/ML INJ IVP PRN (07:28)
[2018-01-03] MEDS ORDERED: HYDROmorphONE/DILAUDID 2 MG/ML INJ IVP PRN (07:28)
[2018-01-03] MEDS ORDERED: oxyCODONE IR 5 MG TAB PO PRN ×2 (07:28→09:06)
[2018-01-03] MEDS ORDERED: ONDANSETRON 4 MG/2 ML VIAL IVP PRN ×2 (07:28→09:06)
[2018-01-03] MEDS ORDERED: METOCLOPRAMIDE 10 MG/2 ML VIAL IVP PRN ×2 (07:28→09:06)
[2018-01-03] MEDS ORDERED: LR 500 ML IV PRN (07:28)
[2018-01-03] MEDS ORDERED: fentaNYL 100 MCG/2 ML INJ IVP PRN (07:28)
[2018-01-03] MEDS ORDERED: LIDOCAINE 2% 100 MG/5 ML SYR ONE (07:49)
[2018-01-03] MEDS ORDERED: PHENYLEPHRINE HCL 100 MCG/ML SYR ONE ×3 (07:49→08:28)
--- NOTE | 2018-01-03 08:45 | POSTOPPROG ---
Post Op Note Date of Operation: 01/03/18 Surgeon: Austyn Romero Postdoctoral Fellow: Tony/Dany Anesthesiologist: Miguel Anesthesia: IV Sedation, Spinal Post-op Diagnosis: Left hip severe arthritis. Procedure: Left hip [place] hip resurfacing arthroplasty. Inf/Abcess present in the surg proc area at time of surgery?: No EBL: 100-500
[2018-01-03] MEDS ORDERED: diphenhydrAMINE 25 MG CAP PO PRN (09:06)
[2018-01-03] MEDS ORDERED: NS 500 ML IV PRN (09:06)
[2018-01-03] MEDS ORDERED: CYCLOBENZAPRINE 10 MG TAB PO PRN (09:06)
[2018-01-03] MEDS ORDERED: LACTULOSE 20 GM/30 ML UDCUP PO PRN (09:06)
[2018-01-03] MEDS ORDERED: MAGNESIUM HYDROXIDE 30 ML UDCUP PO PRN (09:06)
[2018-01-03] MEDS ORDERED: BISACODYL 10 MG SUPP PR PRN (09:06)
[2018-01-03] MEDS ORDERED: DIPHENOXYLATE/ATROPINE LOMOTIL 1 TAB PO PRN (09:06)
[2018-01-03] MEDS ORDERED: ONDANSETRON DISINTEGRATING 4 MG TAB PO PRN (09:06)
[2018-01-03] MEDS ORDERED: POLYETHYLENE GLYCOL 3350 17 GM PKT PO PRN (09:06)
[2018-01-03] MEDS ORDERED: TEMAZEPAM 15 MG CAP PO PRN (09:06)
[2018-01-03] MEDS ORDERED: PROMETHAZINE HCL 25 MG SUPPR PR PRN (09:06)
--- NOTE | 2018-01-03 09:19 | PDMN ---
Medical Necessity Medical necessity: MCG: S565 hip resurfacing 2 days: OP: L hip [place] hip resurfacing arthroplasty
[2018-01-03] MEDS ORDERED: LR 1,000 ML IV SCH (09:30)
--- NOTE | 2018-01-03 10:14 | GOP ---
DATE OF OPERATION: 01/03/2018 SURGEON: Austyn Romero MD ASTRO TECHNICIAN: Juan Jimenez and Hao Saenz. ANESTHESIA: Combination of Marcaine, spinal, and IV sedation. ANESTHESIOLOGIST: Dr. Rivera. PREOPERATIVE DIAGNOSIS: Left hip severe degenerative arthritis. POSTOPERATIVE DIAGNOSIS: Left hip severe degenerative arthritis. PROCEDURE PERFORMED: 01/03/2018, left hip [place] hip resurfacing arthroplasty. FINDINGS: DESCRIPTION OF PROCEDURE: The patient was given 2 g of IV Ancef within 60 minutes of surgery. He al so received 1000 mg of IV tranexamic acid. He was placed on the operating room table and given spina l anesthesia with Marcaine by Dr. Rivera. He was then placed supine and given IV sedation. A Fole y catheter was not used. He wore a compressive stocking and SCD on the nonoperative leg. He was rol led to the right lateral decubitus position. An axillary roll was used, and all pressure points were carefully padded. The position was secured with the pegboard table attachment. I was careful to lo ck his pelvis in a vertical position. He was a large muscular man. His BMI was 37.3. That made pos itioning difficult. His perineum was isolated with plastic adhesive drapes. His left hip and left l ower extremity were prepped with ChloraPrep. They were draped free using sterile sheets, stockinette , and Ioban plastic drape. The [employer] time-out was performed to verify the correct patient identity and the c orrect surgical side and site. The [place] time-out was also performed. I made a 7 to 8 inch straight oblique posterolateral hip skin incision. I had to make a larger than normal incision because of his size. The subcutaneous tissues were sharply divided, and hemostasis w as obtained using electrocautery. The fascia yash was identified and split along the axis of its fib ers. I curved posteriorly and proximally, and split the fascia of the gluteus barry and bluntly sp lit the muscle fibers in line with their orientation. His sciatic nerve was identified and protected throughout the procedure. The Charnley self-retaining retractor was inserted. The external rotator s and the posterior hip capsule were divided as separate layers at the base of the femoral neck, tagg ed, and reflected posteriorly. The gluteus barry tendon was divided and tagged in order to improve exposure and release tension on the sciatic nerve. His hip was dislocated posteriorly. I used a si zing gauge to check the diameter of the neck and concluded that 52 mm was the proper head size. I pe rformed a circumferential capsulotomy. I was able to retract the femoral head anteriorly and superio rly, and hold it out of place with appropriate retractors. The remnant of his damaged labrum was exc ised. His acetabulum was reamed sequentially up to 58 mm. I selected the Imelda monoblock porou s-coated acetabular component with an outside diameter of 58 mm. This was firmly impacted and was a very tight fit. I was careful to determine proper inclination anteversion. I used the transverse ac etabular ligament and other acetabular bony landmarks to help determine proper cup orientation. I wa s careful to leave a good lip of bone and capsule extending beyond the anterior-inferior lip of the m etal cup. I then returned to preparation of the femoral head. Using appropriate jigs and guides, I inserted a guide pin into the femoral head and neck. I was careful to position it in such a way that there woul d be no notching of the neck. The large sterile metal goniometer was used to check the neck shaft an gle. I reamed over the guide pin and inserted the reaming guide. I then used the cylindrical reamer down to the head and neck junction. This was followed by the flat reamer and the chamfer reamer. T he head was sized for 52 mm. There was no impingement or damage to the neck. He had excellent quali ty bone in his femoral head. I drilled a small hole in the lesser trochanter and inserted a suction cannula to create negative pressure in the medullary canal. Small holes were drilled on the flat and chamfer surfaces of the head for cement anchors. The head was thoroughly cleaned with the pulsating lavage and carefully dried. I used a CarboJet device to blow dry the cancellous surfaces. A single batch of Simplex cement with tobramycin was mixed. At about 50 seconds, I poured the liquid cement into the head component, inserted it onto the femoral head and impacted it into place. Excess cement was removed before it hardened. The acetabulum was irrigated, cleaned, and inspected, and the hip was reduced. Stability and range o f motion were checked. I placed my finger along the anterior aspect of the acetabular component and flexed the hip to 110 degrees. There was no anterior impingement. The suction cannula in the lesser trochanter was removed. The wound was thoroughly irrigated with a dilute Betadine solution. 40 cc of the joint anesthetic cocktail were injected into the capsule, the deep musculature, and the subcut aneous tissues along the skin edges. The wound was irrigated with 50 cc of tranexamic acid solution. His sciatic nerve was reinspected and looked unharmed. The external rotators and the posterior hip capsule were repaired in separate layers with #2 FiberWir e sutures through drill holes in the greater trochanter. The gluteus barry tendon was repaired wit h two #2 [id number] FiberWire sutures. The fascia yash was repaired first with 2 interrupted fi [id number] #2 FiberWire sutures followed by a running #2 barbed Ethicon Stratafix PDO suture. The subcutaneous tissues were closed with a running 0 barbed Ethicon Stratafix Monoderm suture. The ski n was closed with a running 3-0 barbed Ethicon Stratafix Monoderm subcuticular suture. The skin edge s were reapproximated and sealed with Dermabond glue. The wound was covered with a large Mepilex louie erproof dressing. The sacral Mepilex expressing was also applied. The estimated blood loss was about 400 cc. I used a [employer] Imelda hip resurfacing system. The acetabular component was 58 mm in d iameter and press-fit. The femoral head was 52 mm and cemented. He was awakened from anesthesia and rolled to the supine position on his [facility]. A long-leg compressive stocking and SCD were applied to the operative leg. He wore a stocking and SCD on the opposite leg during the procedure. An abduction pillow was placed between his knees. He was taken to PACU in satisfactory condition. T here were no recognized intraoperative complications. The sponge and needle count were correct on 2 occasions. Juan Jimenez and Hao Saenz acted as surgical assistants. Their assistance was a medical necess ity for safe completion of the procedure. /[id number]/MODL
[2018-01-03] MEDS: ACETAMINOPHEN 325 MG TAB PO SCH ×3 (12:36→23:20)
[2018-01-03] MEDS: traMADol 50 MG TAB PO PRN ×2 (12:37→20:13)
[2018-01-03] MEDS: KETOROLAC 15 MG/1 ML SDV IVP SCH ×3 (12:37→23:20)
[2018-01-03] MEDS: ceFAZolin 2 GM/DEXTROSE 100 ML IV SCH ×2 (17:18→23:20)
[2018-01-03] MEDS: LISINOPRIL/HCTZ 20/12.5MG 1 EA TAB PO SCH (17:33)
[2018-01-03] MEDS ORDERED: ATORVASTATIN CALCIUM 20 MG TAB PO SCH (18:00)
[2018-01-03] MEDS: FAMOTIDINE 20 MG TAB PO SCH (20:13)
[2018-01-03] MEDS: SENNOSIDES/DOCUSATE SODIUM TAB PO SCH (20:13)
[2018-01-03] MEDS: ASPIRIN 325 MG TAB PO SCH (20:13)
[2018-01-04] MEDS: ACETAMINOPHEN 325 MG TAB PO SCH (05:33)
[2018-01-04] MEDS: KETOROLAC 15 MG/1 ML SDV IVP SCH (05:33)
[2018-01-04] MEDS ORDERED: LEVOTHYROXINE 50 MCG TAB PO SCH (06:00)
--- NOTE | 2018-01-04 07:48 | SOAPPROG ---
SOAP Progress Note Assessment/Plan: Assessment: Afebrile. Mild pain. Up and walking in the hallway. His dressing is dry. Sciatic nerve intact. H&H are good. Postop films look excellent. Plan: Continue physical therapy today for stairs. Discharge later today. 01/04/18 07:47 Objective: Vital Signs Temp Pulse Resp BP Pulse Ox 36.4 C 75 13 103/72 94 01/04/18 07:34 01/04/18 07:34 01/04/18 07:34 01/04/18 07:34 01/04/18 07:34 Laboratory Results 01/04/18 04:25 01/03/18 01/04/18 01/05/18 05:59 05:59 05:59 Intake Total 3380 300 Output Total 830 350 Balance 2550 -50 ICD10 Worksheet Patient Problems: Problems Problem Status Onset Osteoarthritis of left hip Acute Osteoarthritis of right hip Acute
--- NOTE | 2018-01-04 07:59 | SOAPPROG ---
SOAP Progress Note Assessment/Plan: Assessment: Afebrile. Mild pain. Up and walking in the hallway. His dressing is dry. Sciatic nerve intact. H&H are good. Postop films look excellent. Plan: Continue physical therapy today for stairs. Discharge later today. 01/04/18 07:47 01/04/18 07:51 Pt is complaining of numbness on left side of tip of tongue. Probably related to anesthesia. Should be temporary. Objective: Vital Signs Temp Pulse Resp BP Pulse Ox 36.4 C 75 13 103/72 94 01/04/18 07:34 01/04/18 07:34 01/04/18 07:34 01/04/18 07:34 01/04/18 07:34 Laboratory Results 01/04/18 04:25 01/03/18 01/04/18 01/05/18 05:59 05:59 05:59 Intake Total 3380 300 Output Total 830 350 Balance 2550 -50 ICD10 Worksheet Patient Problems: Problems Problem Status Onset Osteoarthritis of left hip Acute Osteoarthritis of right hip Acute
[2018-01-04] MEDS: LISINOPRIL/HCTZ 20/12.5MG 1 EA TAB PO SCH (08:08)
[2018-01-04] MEDS: ASPIRIN 325 MG TAB PO SCH (08:10)
[2018-01-04] MEDS: SENNOSIDES/DOCUSATE SODIUM TAB PO SCH (08:11)
[2018-01-04] MEDS: FAMOTIDINE 20 MG TAB PO SCH (08:11)
[2018-01-04 08:14] VITALS: BP 123/82
--- NOTE | 2018-01-04 08:25 | GDS ---
ADMISSION DIAGNOSIS: Left hip severe degenerative arthritis. DISCHARGE DIAGNOSIS: Left hip severe degenerative arthritis. OPERATIONS PERFORMED: 01/03/2018: Left hip [place] hip resurfacing arthroplasty. POSTOPERATIVE COMPLICATIONS: None. CONDITION ON DISCHARGE: Improved. DESCRIPTION OF HOSPITAL COURSE: The patient was admitted to the hospital on the morning of surgery. His admission white blood cell count was 10,500. H and H and platelet count were normal. BUN, crea tinine, and electrolytes were normal. The same day, under a combination of Marcaine, spinal, and IV sedation, he underwent a left total hip arthroplasty. Postoperatively, he was treated with multimoda l DVT prophylaxis including aspirin. On the first postoperative day, his hemoglobin and hematocrit w ere 14.8 and 43.1. He was able to void spontaneously. He was seen by Physical Therapy and made rapi d progress with ambulation and stairs. By the time of discharge, he was afebrile, his wound was julio c n and dry, and he was independent walking with a walker. DISPOSITION: The patient discharged to his home. He may progress to full weightbearing on the left as tolerated. Use an abduction pillow in bed for 3 weeks. Use MAYKEL stockings for 1 week. Continue a spirin 325 mg p.o. daily for 21 days. He has prescriptions for Celebrex, oxycodone, and tramadol for pain control. I will see him back in the office on January 22, 2018. He will go to outpatient phys ical therapy next week. If there are any problems, he is to call me at the office. /[id number]/MODL
[2018-01-04] MEDS: traMADol 50 MG TAB PO PRN (08:53)
[2018-01-04] MEDS ORDERED: FERROUS SULFATE 140 MG TAB.ER PO SCH (09:00)
--- NOTE | 2018-01-04 09:52 | ASMTLACE ---
LACE Length of stay for Answers: 2 days current admission Acuity / Level of Answers: Yes Care: Did the patient have an inpatient admission? Comorbidities - select Answers: Other Notes: Hypothyroid; HTN all that apply # of Emergency department Answers: 0 visits in the last 6 months Score: 6 Date Signed: 01/04/2018 09:51 AM Electronically Signed By:ZENAIDA Knox
--- NOTE | 2018-01-04 09:53 | ASMTCMCOM ---
CM Note CM Note Notes: Pt had planned hip sx. PT rec home/outpatient. Pt medically stable for d/c, no CM d/c needs identified. Date Signed: 01/04/2018 09:52 AM Electronically Signed By:ZENAIDA Knox
== END 2018-01-04 11:48 | disposition home or self-care (01) | DRG 470 ==
LOC: F3E 05:53 → OBSVTOIN 05:53 → F3N 12:13
PROVIDERS: ADMIT Orthopaedic Surgery; ATTEND Orthopaedic Surgery
PROC: 0SUB0BZ Supplement Left Hip Joint with Resurfacing Device, Open Approach (ICD-10-PCS; principal; 2018-01-03 07:15)
DX: M16.12 Unilateral primary osteoarthritis, left hip (principal); Z96.641 Presence of right artificial hip joint; E03.9 Hypothyroidism, unspecified; I10 Essential (primary) hypertension; E78.00 Pure hypercholesterolemia, unspecified
CPT/HCPCS: 97116-GP; 97161-GP; 97165-GO; C1713; J0171; J0690; J1100; J1885; J2001; J2250; J2370; J2405; J2704; J2795; J3010